=== PATIENT | male | born 1940 | race Native Hawaiian/Other Pacific Islander ===

== ENCOUNTER 2022-04-08 09:31 | Observation (INO) | payer OTHER ==
[~2022-04-08] VITALS: Ht 175.3 cm; Wt 74.6 kg
[2022-04-08 09:35] VITALS: BP 127/73; TEMP 98.6
[2022-04-08 10:22] LABS: PLATELET COUNT 246 K/uL (142-355)
[2022-04-08 12:16] VITALS: BP 148/69; TEMP 98.2; Ht 175.3 cm; Wt 74.6 kg
[2022-04-08] MEDS ORDERED: LISI20TA11 PO (12:21)
[2022-04-08] MEDS ORDERED: QUETIAPINE50 MG PO (12:22)
[2022-04-08] MEDS ORDERED: ASA LOW DOSE81 MG PO (12:23)
[2022-04-08 13:35] VITALS: BP 148/69; TEMP 98.2
[2022-04-08 16:00] VITALS: BP 124/65; TEMP 98.2
[2022-04-08 20:24] VITALS: BP 120/54; TEMP 98.1
[2022-04-09] VITALS: BP 125/60; TEMP 98.2
[2022-04-09 04:00] VITALS: BP 127/65; TEMP 98.4
[2022-04-09 08:00] VITALS: BP 124/64; TEMP 98.7
[2022-04-09] MEDS ORDERED: LEVAQUIN250 MG PO (11:55)
[2022-04-09 12:00] VITALS: BP 137/62; TEMP 97.5
== END 2022-04-09 13:10 | disposition home health service (06) ==
LOC: ED 09:31 → MED/SURG 11:30 → ED 11:30 → MED/SURG 04-09 13:10
PROVIDERS: ADMIT Emergency Medicine Emergency Medical Services; ATTEND Internal Medicine
DX: J18.8 Other pneumonia, unspecified organism (principal); I10 Essential (primary) hypertension; F20.89 Other schizophrenia
CPT/HCPCS: 36415; 80048; 85027; 87040; 87502; 87635; 87651; 94664; 94760; 96360; 96361; 96365; 96366; 96367; 99220; 99284; G0378; J0696; J1956; U0001; U0003